=== PATIENT | female | born 1950 | race Caucasian/White ===

== ENCOUNTER 2018-01-25 08:39 | Emergency (ER) | payer OTHER ==
--- NOTE | 2018-01-25 08:50 | EDPHY ---
HPI/HX/ROS/PE/MDM Narrative: CHIEF COMPLAINT: Fall, wrist injury, facial injury HPI: The patient is a 67 y/o female arriving via EMS complaining of right wrist pain and facial abrasions secondary to a slip and fall on ice while jogging this morning. She describes a mechanical slip and fall without any antecedent symptoms. She caught her fall with her right wrist and had immediate pain and deformity at the site. She also struck her right cheek on the ground. She denies loss of consciousness, headache, weakness, paresthesias, or other injuries. She is normally healthy and not on anticoagulants. Last PO intake was some grapefruit around 05:45. REVIEW OF SYSTEMS: Aside from elements discussed in the HPI, a comprehensive 10-point review of systems was reviewed and is negative. PMH: Hypothyroidism; granuloma annulare SOCIAL HISTORY: [employer] insurance. at bedside. PHYSICAL EXAM: General:Patient is alert, in no acute distress. Head: Contusion and ecchymosis with 1.5cm laceration to right cheek and 1.5cm laceration to right eyebrow. No crepitus. ENT:Eyes are normal to inspection. ENT inspection normal. Neck: Normal inspection. Full range of motion. Respiratory:No respiratory distress. Breath sounds normal bilaterally. Cardiovascular: Regular rate and rhythm. Strong peripheral pulses. Normal cap refill. Abdomen:The abdomen is nontender to palpation. There are no peritoneal signs. Back: Normal to inspection. No tenderness to palpation. Skin: Normal color. No rash. Warm and dry. Extremities: Deformity of right wrist with preserved CMS of hand and fingers, ROM limited by pain. Other extremities are normal in appearance with full range of motion. Neuro: Oriented x3. Normal motor function. Normal sensory function. ED Course: This is a healthy 67 y/o female who presents with right wrist deformity and pain and facial abrasions secondary to slip and fall while jogging this morning. She is neurovascularly intact. Low suspicion for intracranial injury. Plan for wound care and right wrist x-ray. Pain management if needed. X-ray shows distal radius fracture dislocation. 0903: Consulted with Dr. Arauz, orthopedist. He recommends initial reduction in the ED. Reassessed patient and discussed imaging results. Offered several options for reduction including conscious sedation or Eva block, but she would prefer to try reduction with IV pain medication only first. 0948: 50mcg IV Fentanyl administered prior to reduction. Procedure: Reduction of Dislocated Distal Radius Fracture Time-out completed immediately before the procedure. IV established. O2 administered. Placed on pulse oximeter and ETCO2 monitor. Neurovascular exam intact pre-procedure. Given 50mcg IV Fentanyl for pain. The right distal radius fracture was reduced using manual reduction. Reassessed post-procedure. Neurovascular status intact-Normal Motor and sensory exam. Exam indicated reduction. Confirmed reduction on X-ray. Splint applied by myself and tech. The procedure was performed by myself, Dr. Lane. Consulted with ortho regarding post-reduction films. He is able to surgically repair fracture tomorrow. However, patient is a [facility] patient and will need to discuss follow up with them. Spoke with [facility]. They will contact patient today for follow up. If she does not hear from them by this afternoon, she needs to call [phone] to arrange surgical follow up. Procedure: Laceration repair. Verbal consent was obtained from the patient. The linear 1.5cm laceration on the right eyebrow did not require anesthesia. The wound was cleaned with standard ED protocol. There were no deep structures involved. The wound was repaired with Dermabond. The wound repair was simple. The procedure was performed by myself, Dr. Lane. Patient will be discharged home with fracture care and wound care follow up and return precautions. Script for Percocet given for pain. She is comfortable with this plan. MDM: This patient presents with severe fracture/dislocation of wrist after a fall. Joint was reduced and neurovascular exam is normal post-splinting and at time of discharge. Our orthopedist has agreed to see her later this afternoon and possibly to perform surgery today, but patient has [facility] insurance and they have directed us to have patient call their orthopedist line to arrange for follow-up instead. I see no signs of other serious injury. The patient has some mild facial trauma but no signs of intracranial bleed or fracture. - Data Points Imaging Results: Imaging Impressions Wrist X-Ray 01/25/18 08:47 Impression: Comminuted and dislocated distal radial fracture. Wrist X-Ray 01/25/18 09:57 Impression: Marked improvement in this imperfect reduction. Imaging: I viewed and interpreted images myself Medications Given: Discontinued Medications Fentanyl (Sublimaze) 100 mcg IVP EDNOW ONE Stop: 01/25/18 09:37 Last Admin: 01/25/18 10:03 Dose: 100 mcg General Time Seen by Provider: 01/25/18 08:40 Initial Vital Signs: Initial Vital Signs Temperature (C) 36.2 C 01/25/18 08:35 Heart Rate 69 01/25/18 08:35 Respiratory Rate 18 01/25/18 08:35 Blood Pressure 135/74 H 01/25/18 08:35 O2 Sat (%) 97 01/25/18 08:35 O2 Delivery Mode Room Air Allergies/Adverse Reactions: amoxicillin Allergy (Verified 01/25/18 08:53) Penicillins Allergy (Verified 01/25/18 08:53) Sulfa (Sulfonamide Antibiotics) Allergy (Verified 01/25/18 08:53) Home Medications: Medication Instructions Recorded Levothyroxine 01/25/18 oxyCODONE/APAP 5/325 [Percocet 5 - 10 mg PO Q4-6PRN PRN #10 tab 01/25/18 5/325] Departure - Departure Disposition: Home, Routine, Self-Care Clinical Impression: Distal radius fracture, right, Facial abrasion Condition: Good Instructions: Wrist Fracture in Adults (ED) Additional Instructions: 1. Keep splint dry and in place until follow up with orthopedist. 2. Apply ice intermittently to sore areas. Keep wrist elevated when possible. 3. Take Percocet as prescribed as needed for severe pain. This medication can make you drowsy and cause constipation, so take appropriate precautions. 4. [facility] should call you today to arrange follow up. If you do not hear from them by this afternoon, please call [phone]. We recommend being seen by an orthopedist by tomorrow for surgical evaluation. 5. You've been referred to Dr. Arauz locally (not [facility]) if needed. 6. Return to the ED for severe pain, weakness, numbness, color change in your fingertips, or other worsening of condition. Referrals: Joey Arauz MD [Medical Doctor] - As per Instructions [facility] ([facility],. [Edm Groups for Call Sched] - As per Instructions Prescriptions: oxyCODONE/APAP 5/325 [Percocet 5/325] 5 - 10 mg PO Q4-6PRN PRN #10 tab PRN Reason: For Pain Report Scribed for: Palomo Lane Report Scribed by: Dahiana Curiel Date of Report: 01/25/18 Time of Report: 08:50 Physician Review and Approval Statement: Portions of this note were transcribed by an ED scribe. I personally performed the history, physical exam, and medical decision making; and confirm the accuracy of the information in the transcribed note.
[2018-01-25] MEDS ORDERED: fentaNYL 100 MCG/2 ML INJ IVP ONE (09:36)
[2018-01-25] MEDS ORDERED: SKIN ADHESIVE (DERMABOND) 1 EACH TP ONE (11:08)
[2018-01-25 11:26] VITALS: BP 137/62; PULSE 58; RESP 16; TEMP 98.4; O2SAT 98
== END 2018-01-25 11:22 | disposition home or self-care (01) ==
PROC: 0PSHXZZ Reposition Right Radius, External Approach (ICD-10-PCS; principal; 2018-01-25)
PROC: 0HQ1XZZ Repair Face Skin, External Approach (ICD-10-PCS; 2018-01-25)
DX: S52.591A Other fractures of lower end of right radius, initial encounter for closed fracture (principal); S01.111A Laceration without foreign body of right eyelid and periocular area, initial encounter; W00.0XXA Fall on same level due to ice and snow, initial encounter; Y99.8 Other external cause status; Y93.89 Activity, other specified
CPT/HCPCS: 12011; 25605; 73100; 73110; 96374; 99284; J3010; L3980